=== PATIENT | female | born 1955 | race American Indian/Alaskan Native ===

== ENCOUNTER 2020-03-02 09:38 | Outpatient (CLI) | payer BC ==
--- NOTE | 2020-03-02 10:47 | Ultrasound Report ---
ULTRASOUND BREAST ULTRASOUND BREAST LEFT COMPLETE, 03/02/2020 CLINICAL INFORMATION / INDICATION: Breast lump.. 6 month follow-up. TECHNIQUE: Complete sonographic evaluation of all 4 quadrants and retroareolar region was performed. COMPARISON: Complete left breast ultrasound 09/11/19. FINDINGS: There is an elongated ovoid hypoechoic abnormality at the 11:30 position 4 cm from the nipple measuri ng 8.4 mm in greatest dimension compared to 8.8 mm previously. This may just represent a mildly dilat ed duct containing debris. No internal vascularity is seen on Doppler exam and no posterior features are present. There is also a benign-appearing ductal ectasia in the subareolar region extending in al l directions. The previous abnormality at the 5:00 position corresponds to ductal ectasia. No new abnormality is seen. No suspicious solid mass, posterior shadowing or distortion are identifie d. No axillary adenopathy is seen. There is a left breast implant without complication. IMPRESSION: Benign-appearing ductal ectasia. Probably benign finding at the 11:30 position is stable and may represent ductal ectasia with internal debris. Another follow-up left breast ultrasound is re commended in 6 months to better document stability. Follow up recommendation: Ultrasound BI-RADS Category 3: Probably Benign. Followup in 6 months. A normal or "negative" report should not preclude biopsy or follow-up of a clinically suspicious find ing. Signer Name: Que Pritchard MD Signed: 03/02/2020 10:43 AM Workstation Name: [id number]
== END 2020-03-02 09:39 | disposition home or self-care (01) ==
LOC: SPVWC 09:38
PROVIDERS: ATTEND Surgery
DX: N60.42 Mammary duct ectasia of left breast (principal); N63.20 Unspecified lump in the left breast, unspecified quadrant; R92.8 Other abnormal and inconclusive findings on diagnostic imaging of breast

== ENCOUNTER 2020-07-14 09:34 | Outpatient (CLI) | payer BC ==
--- NOTE | 2020-07-14 11:47 | Ultrasound Report ---
RIGHT DIGITAL DIAGNOSTIC MAMMOGRAM WITH CAD , 07/14/2020 BILATERAL LIMITED BREAST ULTRASOUND CLINICAL INFORMATION / INDICATION: Patient is palpating a lump in the right axilla. Left breast ultra sound is a short-term follow-up exam for benign-appearing mass at 11-12:00. Patient has history of ri ght mastectomy with reconstruction for breast carcinoma. TECHNIQUE: Digital right mammographic imaging was performed. Limited ultrasound was performed. This e xamination was interpreted with the benefit of Computer-Aided Detection (CAD) analysis. COMPARISON: Comparison is with prior left breast ultrasound exams including 03/02/2020 and 09/11/2019. FINDINGS: Breast Density: status post mastectomy. N/A MAMMOGRAPHIC FINDINGS: Status post right mastectomy with augmentation. There is a silicone retropecto ral breast implant present which appears grossly unremarkable. The palpable lump in the right axilla is not visualized well enough for evaluation mammographically. The remainder of the reconstructed rig ht breast is unremarkable.. ULTRASOUND FINDINGS: Targeted ultrasound evaluation was performed of the area of interest. Right breast: The palpable lump in the right breast corresponds to a hypoechoic slightly irregular ma ss that is taller than wide, measuring 1.1 x 0.7 cm. There is a slightly echogenic center which could represent a fatty hilum which would indicate that this is a lymph node. The overall appearance is no t consistent with a normal benign lymph node, however, and therefore biopsy is recommended. (Patient states recent Covid vaccination was in the left arm) Left breast: The oval benign-appearing masslike area in the left breast at 11:30, 4 cm from nipple, i s not appreciably changed measuring approximately 10 x 2 mm. Overall appearance is unchanged compared with prior ultrasound of 09/11/2019. No new abnormalities identified IMPRESSION: 1. Palpable lump in the right axilla corresponds to a 0.1 cm solid mass, taller than wide. Although t his may represent a lymph node, the appearance is unusual and not consistent with benign axillary lym ph node. Therefore, ultrasound-guided biopsy is suggested. 2. Stable appearance of benign-appearing mass in the left breast at 11:30. No further evaluation is r ecommended for this benign-appearing mass. Follow up recommendation: Biopsy BI-RADS Category 4: Suspicious for Malignancy. A "normal" or negative report should not discourage follow up or biopsy of a clinically significant f inding. A written summary of these findings will be mailed to the patient. The patient will be entered into a mammography reporting system which will generate a reminder letter for the patient's next appointmen t at the appropriate interval. According to the [employer], yearly mammograms are recommended starting at age 40 and continuing as long as a woman is in good health. Breast MRI is recommended for women with an kunal roximately 20-25% or greater lifetime risk of breast cancer, including women with a strong family his tory of breast or ovarian cancer and women who have been treated for Hodgkin's disease. Signer Name: Jemma Reyna MD Signed: 07/14/2020 11:42 AM Workstation Name: [id number]
== END 2020-07-14 09:35 | disposition home or self-care (01) ==
LOC: SPVWC 09:34
PROVIDERS: ATTEND Surgery
DX: N63.22 Unspecified lump in the left breast, upper inner quadrant (principal); N63.10 Unspecified lump in the right breast, unspecified quadrant

== ENCOUNTER 2020-07-27 14:00 | Outpatient (CLI) | payer BC ==
--- NOTE | 2020-07-27 15:45 | Ultrasound Report ---
ULTRASOUND-GUIDED CORE NEEDLE BIOPSY Right axilla WITH CLIP PLACEMENT INDICATION: Right axillary mass. FINDINGS: Informed consent was obtained. The lesion within the right axilla was identified with ultrasound. The overlying skin was cleansed with chloro prep and local anesthesia was obtained with a 1% lidocaine s olution. Under ultrasound guidance a 14-gauge spring loaded core biopsy needle was advanced to the le renee. A total of 5 core samples were obtained. A U-shaped biopsy marker was placed to vanessa the site o f the biopsy. Specimen samples were placed in formalin and RPMI solution and sent to pathology for an alysis. Patient tolerated the procedure well and no immediate complications were identified. A post procedure mammogram was not obtained. The biopsy marker appears appropriately positioned within the lesion son ographically. IMPRESSION: Technically successful ultrasound-guided core biopsy of right axillary lesion. Samples were sent in f ormalin and RPMI solution. An addendum will be added to this report once pathology results are available. Signer Name: Guido Gonzalez MD Signed: 07/27/2020 3:41 PM Workstation Name: [id number]
== END 2020-07-27 14:01 | disposition home or self-care (01) ==
LOC: SPVWC 14:00
PROVIDERS: ATTEND Surgery
DX: R59.9 Enlarged lymph nodes, unspecified (principal)
CPT/HCPCS: 38505; 76942; 88184; 88185; 88305; 88341; 88342

== ENCOUNTER 2020-08-17 12:30 | Outpatient (CLI) | payer BC ==
--- NOTE | 2020-08-17 14:38 | Magnetic Resonance Report ---
Bilateral breast MR without and with contrast. History: Recently diagnosed right axillary malignancy, patient is status post right breast mastectomy with implant reconstruction. Comparison: 07/27/2020, 07/26/2020, 07/14/2020. Technique: Multiplanar multisequence MR images of the breast were obtained before and after the intra venous administration of 13 mL of Clariscan contrast agent. Post processing analysis and review was p erformed on a separate computer workstation. Findings: Patient is status post right breast mastectomy. Bilateral breast implants appear intact. RIGHT BREAST: No discrete enhancing mass, dominant focus, or other abnormal enhancement is identified within the right breast itself. The right breast implant appears intact. LEFT BREAST: No discrete enhancing mass, dominant focus, or other abnormal enhancement is identified within the left breast. The left breast implant appears intact. A 1.3 x 1 x 0.9 cm right axillary lesion with associated biopsy marker is noted. This was previously biopsied and was found to represent malignancy. No abnormal left axillary lymph nodes. No abnormal in ternal mammary lymph nodes.. Impression: Known biopsy proven malignancy within the right right axilla measures up to 1.3 cm on MRI. No additio nal suspicious findings within either breast. BIRADS 6: Known biopsy proven malignancy. Signer Name: Guido Gonzalez MD Signed: 08/17/2020 2:34 PM Workstation Name: [id number]
--- NOTE | 2020-08-17 14:42 | Mammography Report ---
LEFT DIAGNOSTIC MAMMOGRAM INDICATION: Patient is status post right breast mastectomy with recent malignancy identified at the [facility] axilla. Patient is due for annual left breast mammogram. COMPARISON: 08/14/2019, 07/12/2018, 08/08/2017. FINDINGS: The left breast is composed of scattered fibroglandular breast densities. There is a subpec more silicone implant which appears intact. No suspicious mass, microcalcifications, or other abnorm ality within the left breast. CAD was utilized. IMPRESSION: No evidence of left breast malignancy. Continued clinical management of patient's known right axillary malignancy. BI-RADS Category 6: Known Biopsy-Proven Malignancy. A "normal" or negative report should not discourage follow up or biopsy of a clinically significant f inding. A written summary of these findings will be mailed to the patient. FURTHER INFORMATION: According to the [employer], yearly mammograms are recommend ed starting at age 40 and continuing as long as a woman is in good health. Breast MRI is recommended for women with an approximately 20-25% or greater lifetime risk of breast cancer, including women wi th a strong family history of breast or ovarian cancer and women who have been treated for Hodgkin's disease. Signer Name: Guido Gonzalez MD Signed: 08/17/2020 2:38 PM Workstation Name: [id number]
== END 2020-08-17 12:31 | disposition home or self-care (01) ==
LOC: SPVIMAG 12:30
PROVIDERS: ATTEND Surgery
DX: C50.411 Malignant neoplasm of upper-outer quadrant of right female breast (principal); N64.89 Other specified disorders of breast
CPT/HCPCS: 77065; A9575; C8908; 77049

== ENCOUNTER 2020-09-15 07:29 | Day surgery (SDC) | payer BC ==
[2020-09-08 10:04] LABS: Hematocrit 38.3 % (30.3-42.9); Hemoglobin 12.7 gm/dl (10.1-14.3); Mean Corpuscular HGB Conc 33 % (30-34); Mean Corpuscular Volume 87 fl (79-97); Platelet Count 295 K/mm3 (140-440); Red Blood Count 4.42 M/mm3 (3.65-5.03); Red Cell Distribution Width 14.8 % (13.2-15.2)
[~2020-09-15 07:29] MED LIST: ACETAMINOPHEN 500 MG TAB PO SCH; CELECOXIB 200 MG CAP PO NR; GABAPENTIN 300 MG CAP PO NR; LACTATED RINGERS 1,000 ML IV SCH; MIDAZOLAM 2 MG/2 ML INJ IV NR; ceFAZolin/STERILE WATER 2 GM/20 ML SYRINGE IV NR
[2020-09-15] MEDS ORDERED: ONDANSETRON 4 MG/2 ML INJ IV PRN (08:00)
[2020-09-15] MEDS ORDERED: oxyCODONE /ACETAMINOPHEN 5-325MG TAB PO PRN (08:00)
[2020-09-15] MEDS ORDERED: HYDROmorphone 1 MG/1 ML INJ IV PRN (08:00)
--- NOTE | 2020-09-15 08:00 | Anesthesia Consultation ---
Anesthesia Consult and Med Hx Date of service: 09/15/20 - Airway Anesthetic Teeth Evaluation: Good ROM Head & Neck: Adequate Mental/Hyoid Distance: Adequate Mallampati Class: Class III Intubation Access Assessment: Possibly Difficult - Pre-Operative Health Status ASA Pre-Surgery Classification: ASA2 Proposed Anesthetic Plan: General - Pulmonary Hx Smoking: No Hx Respiratory Symptoms: No - Cardiovascular System Hx Hypertension: No Hx Heart Attack/AMI: No Hx Percutaneous Transluminal Coronary Angioplasty (PTCA): No - Central Nervous System CVA: No - Endocrine Hx Renal Disease: No Hx Liver Disease: No Hx Insulin Dependent Diabetes: No Hx Non-Insulin Dependent Diabetes: No Hx Thyroid Disease: No - Hematic Hx Anemia: No - Other Systems Hx Cancer: Yes (breast ca) Hx Obesity: No - Additional Comments Anesthesia Medical History Comments: No hx anesthetic complications. Recent preop medical eval on chart.
--- NOTE | 2020-09-15 08:00 | Anesthesia Day of Surgery ---
Anesthesia Day of Surgery - Day of Surgery Patient Examined: Yes Patient H&P Reviewed: Yes Patient is NPO: Yes
[2020-09-15] MEDS ORDERED: ONDANSETRON 4 MG/2 ML INJ ONE (11:15)
[2020-09-15] MEDS ORDERED: LIDOCAINE MPF (2%) 20 MG/1 ML VIAL 5 ML ONE (11:15)
[2020-09-15] MEDS ORDERED: fentaNYL 100 MCG/2 ML INJ ONE (11:15)
[2020-09-15] MEDS ORDERED: propofoL 200 MG/20 ML VIAL IV ONE (11:15)
[2020-09-15] MEDS ORDERED: LIDOCAINE (1%) 10 MG/1 ML VIAL 20 ML MDV ONE (11:17)
[2020-09-15] MEDS ORDERED: BUPIVACAINE/PF (0.25%) 2.5 MG/ML 30 ML VIAL INFILTRATI ONE ×2 (11:18→12:20)
[2020-09-15] MEDS ORDERED: LIDOCAINE (1%) 10 MG/1 ML VIAL 20 ML MDV INFILTRATI ONE (12:20)
[2020-09-15] MEDS ORDERED: ePHEDrine SULFATE 50 MG/1 ML INJ ONE (13:02)
[2020-09-15] MEDS ORDERED: LACTATED RINGERS 1,000 ML ONE (13:12)
[2020-09-15] MEDS ORDERED: dexAMETHasone 20 MG/5 ML VIAL ONE (13:40)
--- NOTE | 2020-09-15 13:57 | Short Stay Summary ---
Short Stay Documentation Date of service: 09/15/20 - History H&P: obtained from office - Allergies and Medications Current Medications: Allergies No Known Allergies Allergy (Verified 09/02/20 12:35) Home Medications Medication Instructions Recorded Confirmed Last Taken Type Ibuprofen [Motrin 800 MG tab] 800 mg PO Q8HR PRN #12 tablet 09/15/20 Unknown Rx Active Medications Acetaminophen (Acetaminophen 500 Mg Tab) 1,000 mg PO PREOP SHIVAM Stop: 09/15/20 20:00 Last Admin: 09/15/20 08:30 Dose: 1,000 mg Documented by: Cefazolin Sodium (Cefazolin/Sterile Water 2 Gm/20 Ml Syringe) 2 gm IV PREOP NR Stop: 09/15/20 23:59 Celecoxib (Celecoxib 200 Mg Cap) 200 mg PO PREOP NR Stop: 09/15/20 20:00 Last Admin: 09/15/20 08:30 Dose: 200 mg Documented by: Gabapentin (Gabapentin 300 Mg Cap) 300 mg PO PREOP NR Stop: 09/15/20 20:00 Last Admin: 09/15/20 08:30 Dose: 300 mg Documented by: Hydromorphone HCl (Hydromorphone 1 Mg/1 Ml Inj) 0.5 mg IV Q10MIN PRN PRN Reason: Pain , Severe (7-10) Stop: 09/15/20 18:00 Lactated Ringer's (Lactated Ringers) 1,000 mls @ 100 mls/hr IV DIRECT SHIVAM Stop: 09/15/20 23:59 Last Admin: 09/15/20 09:40 Dose: 100 mls/hr Documented by: Midazolam HCl (Midazolam 2 Mg/2 Ml Inj) 2 mg IV PREOP NR Stop: 09/15/20 20:00 Last Admin: 09/15/20 09:40 Dose: 2 mg Documented by: Ondansetron HCl (Ondansetron 4 Mg/2 Ml Inj) 4 mg IV ONCE PRN PRN Reason: Nausea And Vomiting Stop: 09/15/20 17:00 Oxycodone/Acetaminophen (Oxycodone /Acetaminophen 5-325mg Tab) 1 tab PO ONCE PRN PRN Reason: Pain, Moderate (4-6) Stop: 09/15/20 18:00 - Brief post op/procedure progress note Date of procedure: 09/15/20 Pre-op diagnosis: Right breast cancer axillary tail Post-op diagnosis: same Procedure: Right axillary tail mass wide local excision Anesthesia: GETA Findings: Wire, mass and clip present Surgeon: RODRIGO BETTENCOURT Estimated blood loss: minimal Pathology: list Specimen disposition: to lab Condition: stable - Disposition Condition at discharge: Good Disposition: DC-01 TO HOME OR SELFCARE Short Stay Discharge Plan Activity: other (no heavy lifting) Diet: regular Wound: keep clean and dry (may shower in 48 hours-keep drain site clean and dry; no baths; notify MD if drain output over 50 cc in 24 hours) Follow up with: RODRIGO BETTENCOURT MD [Staff Physician] - 7 Days Prescriptions: Ibuprofen [Motrin 800 MG tab] 800 mg PO Q8HR PRN #12 tablet PRN Reason: Pain , Severe (7-10)
--- NOTE | 2020-09-15 14:14 | Operative Report ---
Operative Report Operative Report: Operative Report: September 15, 2020 Preoperative diagnosis: Right axillary tail mass wide local excision of the upper outer quadrant Postoperative diagnosis: Same Procedure: Right axillary tail mass needle localization of breast mass wide local excision Surgeon: Debo León MD Granite Setter: Rebecca Rubin MD Anesthesia: General Findings: Right wire, mass and clip present within radiograph specimen Complications: None Drains: 10 Setswana HOWIE drain EBL: Less than 25 cc Disposition: PACU in good condition Indications for operative procedure: This is a 64 year old lady with a personal history of Stage IA right breast cancer diagnosed July 2004 and underwent a right total mastectomy with implant placement and she completed adjuvant chemotherapy as well as 3 years of tamoxifen and 2 years of anastrozole. 7 sentinel lymph nodes were removed in 2004 and were negative for malignancy. 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 Recommendations were to proceed with a wide local excision. Recent PET with findings of known right axillary tail malignancy and no other suspicious findings. Patient understood if mass found on final pathology to represent an axillary lymph node indications may be proceed with an axillary lymph node dissection at a later date and time. She has met with medical oncology and radiation oncology. She wished to proceed with the above procedure. Procedure in detail: The patient was taken to radiology for wire placement for localization known area of cancer. She was taken to the operating room and was laid supine. Gen. anesthesia was administered. Right breast mound/chest and axilla were prepped and draped in the normal sterile operative fashion. The wire was identified. Timeout was performed. Ultrasound was used to identify the area of known malignancy of the axillary tail towards the axilla with mass and clip present. An axillary incision was made with a 15 blade knife and dissection taken down to subcutaneous tissues. First began raising of the lateral flap with removal of the wire from the skin with dissection taken medially past the area of known maglignancy and then taken down to the pectoralis muscle, followed by raising of the inferior flap, medial flap and lateral flap with all flaps taken past the area of concern. The mass was then removed with the aid of the Bovie cautery. Dissection was taken medially towards the pectoralis muscle and laterally towards latissimus dorsi muscle. The wire was not encountered. Specimen was marked and then sent to pathology and radiology; radiograph specimen with wire, mass and clip present. An axillary lymph node was noted more medially that was removed as well. Upon palpation of specimen, a second mass was palpated posteriorly. The margins appeared adequate, evaluated via ultrasound. No other suspicious lesions or areas of concern were seen within the axilla. Minimal axillary tissue was noted within the axilla as well given patient's prior surgery. Hemostasis was obtained and the axillary cavity was irrigated. A 10 Setswana HOWIE drain was placed. The axillary cavity was anesthetized with 1% lidocaine mixed with quarter percent Marcaine. Then proceeded with closure.The subcutaneous tissues were then approximated and closed using interrupted 3-0 Vicryl followed by closing of the skin with a running 4-0 Monocryl and skin affix. The patient tolerated surgery very well and she was awaken from anesthesia without any complication and transported to PACU in good condition.
--- NOTE | 2020-09-15 14:34 | Mammography Report ---
ULTRASOUND NEEDLE LOCALIZATION BREAST RIGHT HISTORY: Abnormal right axillary lymph node. Right breast cancer. COMPARISON: 07/27/2020 DESCRIPTION OF PROCEDURE: Informed consent was obtained. Sterile technique was utilized. 1% lidocaine for skin anesthesia. Using ultrasound guidance, a 5 cm 20-gauge localization needle/wire was placed through a right axillary lymph node containing a U clip. The patient tolerated procedure without diff iculty. No complications. IMPRESSION: Successful ultrasound-guided wire localization of a right axillary lymph node as describe d. RIGHT AXILLARY SPECIMEN RADIOGRAPH, 09/15/2020 INDICATION: Right breast cancer. Abnormal right axillary lymph node. COMPARISON: Ultrasound guided localization performed earlier today. FINDINGS: The previously localized right axillary lymph node containing a U clip is present in its entirety in the submitted specimen. The localization wire is present. IMPRESSION: 1. Radiographic evidence of satisfactory excision of the right axillary target lesion. Signer Name: Noman Umana Jr, MD Signed: 09/15/2020 2:29 PM Workstation Name: [id number]
[2020-09-15 14:52] VITALS: BP 136/80
[2020-09-15] MEDS ORDERED: ONDANSETRON 4 MG ODT TAB PO PRN (16:00)
--- NOTE | 2020-09-15 16:42 | Post Anesthesia Evaluation ---
- Post Anesthesia Evaluation Patient Participated: Yes Airway Patent: Yes Stable Respiratory Function: Yes Nausea/Vomiting: Yes (mild) Temp > 96.8F: Yes Pain Manageable: Yes Adequeate Hydration: Yes Anesthesia Complications: No
== END 2020-09-15 15:35 | disposition home or self-care (01) ==
LOC: OR 07:29
PROVIDERS: ATTEND Surgery
DX: N63.11 Unspecified lump in the right breast, upper outer quadrant (principal); R59.9 Enlarged lymph nodes, unspecified; Z20.822 Contact with and (suspected) exposure to COVID-19; Z79.899 Other long term (current) drug therapy; Z85.3 Personal history of malignant neoplasm of breast
CPT/HCPCS: 19125; 19285; 36415; 76098; 85027; 88307; A4648; J0690; J1100; J2250; J2405; J2704; J3010; J7120; U0003; Q0162